=== PATIENT | female | born 1950 | race Two or more races ===

== ENCOUNTER 2020-09-06 09:24 | Outpatient (CLI) | payer MEDICARE, OTHER ==
--- NOTE | 2020-09-06 11:30 | Consultation ---
DATE OF CONSULTATION: 09/06/2020 CHIEF COMPLAINT: Referral for hepatitis C. PAST MEDICAL HISTORY: 1. Constipation. 2. Fatty liver. 3. Hepatitis C. PAST SURGICAL HISTORY: Cholecystectomy. MEDICATIONS: Please see medication reconciliation list. ALLERGIES: No known drug allergies. FAMILY HISTORY: No family history of malignancy. SOCIAL HISTORY: The patient denies any tobacco, alcohol, or drug abuse. REVIEW OF SYSTEMS: Last endoscopy and colonoscopy about a year ago. PHYSICAL EXAMINATION: VITAL SIGNS: Temperature 97.2. Weight is 124.9 HEENT: Normocephalic and atraumatic. Sclerae anicteric. NECK: Supple. No evidence of obvious lymphadenopathy. CARDIOVASCULAR: Regular rate and rhythm. Plus S1, S2. LUNGS: Clear to auscultation bilaterally. ABDOMEN: Positive bowel sounds. Soft and nontender. No rebound. No guarding. No peritoneal sign. EXTREMITIES: No cyanosis, no clubbing, no edema. ASSESSMENT: The patient is a 70-year-old female with hepatitis C positive. Viral load is elevated for treatment. We do not have the genotype. Ultrasound was reviewed which showed evidence of fatty liver. PLAN: Order hepatitis C genotype and based on that we are going to start the treatment in next visit. Rj Bolaños M.D. DR: Vianca JOB#: [id number] CC:
== END 2020-09-06 11:24 | disposition home or self-care (01) ==
LOC: PAN 09:24
DX: B19.20 Unspecified viral hepatitis C without hepatic coma (principal); Z90.49 Acquired absence of other specified parts of digestive tract; K76.0 Fatty (change of) liver, not elsewhere classified
CPT/HCPCS: G0463

== ENCOUNTER 2020-09-26 14:00 | Outpatient (CLI) | payer MEDICARE, OTHER ==
--- NOTE | 2020-09-29 14:43 | General Progress Note ---
Subjective ROS Limited/Unobtainable: No Objective General Appearance: alert EENT: normal ENT inspection Neck: normal alignment Cardiovascular: normal rate Respiratory/Chest: lungs clear Abdomen: normal bowel sounds, non tender, soft Assessment/Plan Assessment/Plan: hep C 1 a us and labs reviewed start Rj Osuna MD Sep 29, 2020 14:42
== END 2020-09-26 16:00 | disposition home or self-care (01) ==
LOC: PAN 14:00
DX: B19.20 Unspecified viral hepatitis C without hepatic coma (principal)
CPT/HCPCS: 99212